=== PATIENT | female | born 1975 | race Caucasian/White ===

== ENCOUNTER 2017-08-28 05:48 | Day surgery (SDC) | payer BC ==
[2017-08-27 11:51] LABS: WHITE BLOOD COUNT 6.5 10^3/ul (4.8-10.8)
[2017-08-27 11:51] LABS: ADD MAN DIFF? NO; BASOPHILS % 0.5 % (0.0-2.0); EOSINOPHILS # 0.2 10^3/ul (0.0-0.5); EOSINOPHILS % 2.3 % (0.0-7.0); HEMATOCRIT 39.9 % (37.0-47.0); HEMOGLOBIN 13.4 g/dl (12.0-16.0); LYMPHOCYTES # 2.3 10^3/ul (0.8-2.9); MEAN CORPUSCULAR HEMOGLOBIN 30.7 pg (29.0-33.0); MEAN CORPUSCULAR HGB CONC 33.6 g/dl (32.0-37.0); MEAN CORPUSCULAR VOLUME 91.5 fl (82.0-101.0); MEAN PLATELET VOLUME 10.2 fl (7.4-10.4); MONOCYTE # 0.5 10^3/ul (0.3-0.9); MONOCYTES % 7.8 % (0.0-11.0); NEUTROPHIL # 3.5 10^3/ul (1.6-7.5); NEUTROPHILS % 54.2 % (39.0-77.0); PLATELET COUNT 217 10^3/UL (140-415); RED BLOOD COUNT 4.36 10^6/ul (4.20-5.40); RED CELL DISTRIBUTION WIDTH 11.6 % (11.5-14.5)
[2017-08-27 11:53] LABS: ADD UMIC NO; UR ASCORBIC ACID NEGATIVE (NEGATIVE); UR BILIRUBIN (Dip) NEGATIVE (NEGATIVE); UR BLOOD (Dip) NEGATIVE (NEGATIVE); UR CLARITY CLEAR (CLEAR); UR COLOR YELLOW (YELLOW); UR GLUCOSE (Dip) NEGATIVE (NEGATIVE); UR KETONES (Dip) NEGATIVE (NEGATIVE); UR LEUKOCYTE ESTERASE (Dip) NEGATIVE Leu/ul (NEGATIVE); UR NITRITE (Dip) NEGATIVE (NEGATIVE); UR SPECIFIC GRAVITY (Dip) 1.009 (1.003-1.030); UR TOTAL PROTEIN (Dip) NEGATIVE (NEGATIVE); UR UROBILINOGEN (Dip) NEGATIVE (NEGATIVE)
[2017-08-27 12:14] LABS: ALANINE AMINOTRANSFERASE 37 IU/L (13-69); ALBUMIN 4.3 g/dl (3.3-4.9); ALBUMIN/GLOBULIN RATIO 1.53; ALKALINE PHOSPHATASE 37 IU/L (42-121); ANION GAP 12 (8-16); ASPARTATE AMINO TRANSFERASE 17 IU/L (15-46); BILIRUBIN,INDIRECT 0.3 mg/dl (0-1.1); BILIRUBIN,TOTAL 0.3 mg/dl (0.2-1.3); BLOOD UREA NITROGEN 9 mg/dl (7-20); CALCIUM 9.4 mg/dl (8.4-10.2); CARBON DIOXIDE 30 mmol/L (21-31); CHLORIDE 104 mmol/L (97-110); CREATININE 0.62 mg/dl (0.44-1.00); GLUCOSE 74 mg/dl (70-220); POTASSIUM 3.9 mmol/L (3.5-5.1); SODIUM 142 mmol/L (135-144); TOTAL PROTEIN 7.1 g/dl (6.1-8.1)
[2017-08-27 12:22] LABS: INR 0.99; PROTIME 13.2 Sec (11.9-14.9)
[2017-08-27 12:23] LABS: PARTIAL THROMBOPLASTIN TIME 29.8 Sec (25.0-35.0)
[2017-08-28] MEDS ORDERED: hydrALAzine 20 MG INJ IV (06:30)
[2017-08-28] MEDS ORDERED: LABETALOL HCL 20MG INJ IV (06:30)
[2017-08-28] MEDS ORDERED: ATROPINE 1 MG/10 ML SYRINGE IV (06:30)
[2017-08-28] MEDS ORDERED: EPHEDrine SULFATE 50 MG/5 ML SYG IV (06:30)
[2017-08-28] MEDS ORDERED: DIPHENHYDRAMINE 50 MG INJ IV (06:30)
[2017-08-28] MEDS ORDERED: ONDANSETRON 4 MG INJ IV (06:30)
[2017-08-28] MEDS ORDERED: MIDAZOLAM 1 MG/ML 2 ML INJ IV (06:30)
[2017-08-28] MEDS ORDERED: ROCURONIUM 50 MG INJ (06:41)
[2017-08-28] MEDS ORDERED: LIDOCAINE 2% (SDV) 5 ML INJ (06:41)
[2017-08-28] MEDS ORDERED: GLYCOPYRROLATE 0.4 MG INJ (06:41)
[2017-08-28] MEDS ORDERED: MIDAZOLAM 1 MG/ML 2 ML INJ (06:41)
[2017-08-28] MEDS ORDERED: NEOSTIGMINE 3 MG/3 ML SYRINGE (06:41)
[2017-08-28] MEDS ORDERED: FENTAnyl 50 MCG/ML VIAL (06:41)
[2017-08-28] MEDS ORDERED: PROPOFOL 20 ML (06:41)
[2017-08-28] MEDS ORDERED: DEXAMETHASONE 4 MG/ML 1 ML INJ (06:46)
[2017-08-28] MEDS ORDERED: ONDANSETRON 4 MG INJ (06:53)
[2017-08-28] MEDS ORDERED: CEFAZOLIN 1 GM INJ (07:00)
[2017-08-28] MEDS: FENTAnyl 50 MCG/ML VIAL IV ×2 (09:00→09:41)
[2017-08-28] MEDS: STRONG IODINE 14 ML SOLUTION TOP (09:05)
[2017-08-28] MEDS: KETOROLAC 30 MG INJ IV (09:19)
[2017-08-28] MEDS: HYDROCODONE/APAP (5/325) TAB GTB (11:03)
== END 2017-08-28 11:39 | disposition home or self-care (01) ==
LOC: SDS 05:48
DX: D06.1 Carcinoma in situ of exocervix (principal)
CPT/HCPCS: 57520; 71046; 80053; 81003; 84703; 85025; 85610; 85730; 93005

== ENCOUNTER 2017-12-23 05:54 | Inpatient (IN) | payer BC ==
[2017-12-16 16:13] LABS: ADD MAN DIFF? NO
[2017-12-16 16:14] LABS: WHITE BLOOD COUNT 5.4 10^3/ul (4.8-10.8)
[2017-12-16 16:14] LABS: BASOPHILS % 0.6 % (0.0-2.0); EOSINOPHILS # 0.1 10^3/ul (0.0-0.5); EOSINOPHILS % 1.7 % (0.0-7.0); HEMATOCRIT 39.7 % (37.0-47.0); HEMOGLOBIN 13.4 g/dl (12.0-16.0); LYMPHOCYTES # 1.8 10^3/ul (0.8-2.9); LYMPHOCYTES % 34.1 % (15.0-51.0); MEAN CORPUSCULAR HEMOGLOBIN 30.9 pg (29.0-33.0); MEAN CORPUSCULAR HGB CONC 33.8 g/dl (32.0-37.0); MEAN CORPUSCULAR VOLUME 91.7 fl (82.0-101.0); MEAN PLATELET VOLUME 10.7 fl (7.4-10.4); MONOCYTE # 0.4 10^3/ul (0.3-0.9); MONOCYTES % 8.1 % (0.0-11.0); NEUTROPHILS % 55.3 % (39.0-77.0); PLATELET COUNT 201 10^3/UL (140-415); RED BLOOD COUNT 4.33 10^6/ul (4.20-5.40); RED CELL DISTRIBUTION WIDTH 11.4 % (11.5-14.5)
[2017-12-16 16:34] LABS: ADD UMIC NO; UR ASCORBIC ACID NEGATIVE (NEGATIVE); UR BILIRUBIN (Dip) NEGATIVE (NEGATIVE); UR BLOOD (Dip) NEGATIVE (NEGATIVE); UR CLARITY SLIGHTLY CLOUDY (CLEAR); UR COLOR YELLOW (YELLOW); UR GLUCOSE (Dip) NEGATIVE (NEGATIVE); UR KETONES (Dip) TRACE mg/dL (NEGATIVE); UR LEUKOCYTE ESTERASE (Dip) NEGATIVE Leu/ul (NEGATIVE); UR NITRITE (Dip) NEGATIVE (NEGATIVE); UR RBC 1 /HPF (0-5); UR SQUAMOUS EPITHELIAL CELL MODERATE /HPF (FEW); UR TOTAL PROTEIN (Dip) NEGATIVE (NEGATIVE); UR UROBILINOGEN (Dip) NEGATIVE (NEGATIVE); UR WBC 1 /HPF (0-5)
[2017-12-16 16:36] LABS: ALANINE AMINOTRANSFERASE 28 IU/L (13-69); ALBUMIN 4.6 g/dl (3.3-4.9); ALBUMIN/GLOBULIN RATIO 1.53; ALKALINE PHOSPHATASE 49 IU/L (42-121); ANION GAP 16 (8-16); ASPARTATE AMINO TRANSFERASE 17 IU/L (15-46); BILIRUBIN,INDIRECT 0.2 mg/dl (0-1.1); BILIRUBIN,TOTAL 0.2 mg/dl (0.2-1.3); BLOOD UREA NITROGEN 9 mg/dl (7-20); CALCIUM 9.5 mg/dl (8.4-10.2); CARBON DIOXIDE 25 mmol/L (21-31); CHLORIDE 107 mmol/L (97-110); CREATININE 0.63 mg/dl (0.44-1.00); GLUCOSE 84 mg/dl (70-220); SODIUM 144 mmol/L (135-144); TOTAL PROTEIN 7.6 g/dl (6.1-8.1)
[2017-12-16 16:37] LABS: PARTIAL THROMBOPLASTIN TIME 28.3 Sec (25.0-35.0)
[2017-12-16 17:12] LABS: INR 1.01; PROTIME 13.4 Sec (11.9-14.9)
[2017-12-23] MEDS ORDERED: MIDAZOLAM 1 MG/ML 2 ML INJ (07:34)
[2017-12-23] MEDS ORDERED: ROCURONIUM 50 MG INJ (07:34)
[2017-12-23] MEDS ORDERED: PROPOFOL 20 ML (07:34)
[2017-12-23] MEDS ORDERED: ONDANSETRON 4 MG INJ (07:34)
[2017-12-23] MEDS ORDERED: FENTAnyl 50 MCG/ML VIAL ×2 (07:34→10:34)
[2017-12-23] MEDS ORDERED: NEOSTIGMINE 3 MG/3 ML SYRINGE (07:34)
[2017-12-23] MEDS ORDERED: CEFAZOLIN 1 GM INJ (07:34)
[2017-12-23] MEDS ORDERED: GLYCOPYRROLATE 0.4 MG INJ (07:34)
[2017-12-23] MEDS ORDERED: DEXAMETHASONE 4 MG/ML 1 ML INJ (07:35)
[2017-12-23] MEDS ORDERED: morphine SULFATE/PF (10 MG/10 ML) INJ (07:35)
[2017-12-23] MEDS ORDERED: BUPIVACAINE 0.75%/DEXT (SPINAL) 2 ML INJ (07:36)
[2017-12-23] MEDS: CEFAZOLIN 2 GM/50 ML (PMX) 50 ML IVPB ×3 (08:08→22:15)
[2017-12-23] MEDS ORDERED: NALOXONE (0.4 MG/ML) INJ IV ×2 (09:00)
[2017-12-23] MEDS ORDERED: FENTAnyl 50 MCG/ML VIAL IV (09:00)
[2017-12-23] MEDS ORDERED: IPRATROPIUM (NEB) 0.5 MG/2.5 ML AMP HHN (09:00)
[2017-12-23] MEDS ORDERED: TRIMETHOBENZAMIDE 100 MG/ML VIAL IM (09:00)
[2017-12-23] MEDS ORDERED: EPHEDrine SULFATE 50 MG/5 ML SYG IV (09:00)
[2017-12-23] MEDS ORDERED: LABETALOL HCL 20MG INJ IV (09:00)
[2017-12-23] MEDS ORDERED: ALBUTEROL 0.083% (NEB) 2.5 MG/3 ML AMP HHN (09:00)
[2017-12-23] MEDS ORDERED: hydrALAzine 20 MG INJ IV (09:00)
[2017-12-23] MEDS ORDERED: KETOROLAC 30 MG INJ (10:33)
[2017-12-23] MEDS: DIPHENHYDRAMINE 50 MG INJ IV (10:57)
[2017-12-23] MEDS: ONDANSETRON 4 MG INJ IV ×2 (10:57→14:05)
[2017-12-23] MEDS: FENTAnyl 50 MCG/ML VIAL IV ×3 (10:57→11:09)
[2017-12-23] MEDS: LACTATED RINGER'S 1,000 ML (ENTER RATE) IV* ×3 (10:59→22:52)
[2017-12-23] MEDS: MIDAZOLAM 1 MG/ML 2 ML INJ IV (11:20)
[2017-12-23] MEDS: MEPERIDINE 25 MG INJ IV (11:26)
[2017-12-23] MEDS: morphine 2 MG INJ IV ×4 (11:40→22:16)
[2017-12-23] MEDS ORDERED: ALPRAZOLAM 0.25 MG TAB PO (12:00)
[2017-12-23 12:35] LABS: ADD UMIC YES; UR ASCORBIC ACID NEGATIVE (NEGATIVE); UR BILIRUBIN (Dip) NEGATIVE (NEGATIVE); UR BLOOD (Dip) 1+ mg/dL (NEGATIVE); UR CLARITY CLEAR (CLEAR); UR COLOR YELLOW (YELLOW); UR GLUCOSE (Dip) NEGATIVE (NEGATIVE); UR KETONES (Dip) NEGATIVE (NEGATIVE); UR LEUKOCYTE ESTERASE (Dip) NEGATIVE Leu/ul (NEGATIVE); UR NITRITE (Dip) NEGATIVE (NEGATIVE); UR RBC 13 /HPF (0-5); UR SPECIFIC GRAVITY (Dip) 1.017 (1.003-1.030); UR TOTAL PROTEIN (Dip) NEGATIVE (NEGATIVE); UR UROBILINOGEN (Dip) NEGATIVE (NEGATIVE); UR WBC 1 /HPF (0-5)
[2017-12-23] MEDS ORDERED: VITAMIN A & D 5 GM OINT PACKET TOP (13:58)
[2017-12-23] MEDS: IBUPROFEN 600 MG TAB PO ×2 (14:18→22:15)
[2017-12-23] MEDS: HYDROCODONE/APAP (5/325) TAB PO ×2 (16:33→20:35)
[2017-12-23] MEDS: PANTOPRAZOLE (EC) 40 MG TAB PO (16:34)
[2017-12-24] MEDS: HYDROCODONE/APAP (5/325) TAB PO ×6 (00:36→22:02)
[2017-12-24] MEDS: morphine 2 MG INJ IV (05:13)
[2017-12-24] MEDS: CEFAZOLIN 2 GM/50 ML (PMX) 50 ML IVPB (05:14)
[2017-12-24] MEDS: PANTOPRAZOLE (EC) 40 MG TAB PO (05:14)
[2017-12-24] MEDS: IBUPROFEN 600 MG TAB PO ×3 (05:14→22:04)
[2017-12-24 05:25] LABS: ADD MAN DIFF? NO
[2017-12-24 05:31] LABS: BASOPHILS % 0.3 % (0.0-2.0); EOSINOPHILS % 0.3 % (0.0-7.0); HEMATOCRIT 30.8 % (37.0-47.0); HEMOGLOBIN 10.2 g/dl (12.0-16.0); LYMPHOCYTES # 1.5 10^3/ul (0.8-2.9); MEAN CORPUSCULAR HEMOGLOBIN 30.8 pg (29.0-33.0); MEAN CORPUSCULAR HGB CONC 33.1 g/dl (32.0-37.0); MEAN CORPUSCULAR VOLUME 93.1 fl (82.0-101.0); MEAN PLATELET VOLUME 11.3 fl (7.4-10.4); MONOCYTE # 0.9 10^3/ul (0.3-0.9); MONOCYTES % 8.2 % (0.0-11.0); NEUTROPHIL # 8.7 10^3/ul (1.6-7.5); NEUTROPHILS % 77.8 % (39.0-77.0); PLATELET COUNT 173 10^3/UL (140-415); RED BLOOD COUNT 3.31 10^6/ul (4.20-5.40); RED CELL DISTRIBUTION WIDTH 11.5 % (11.5-14.5)
[2017-12-24 05:31] LABS: WHITE BLOOD COUNT 11.2 10^3/ul (4.8-10.8)
[2017-12-24] MEDS ORDERED: PANTOPRAZOLE (EC) 40 MG TAB PO (06:00)
[2017-12-24 06:14] LABS: ANION GAP 8 (8-16); BLOOD UREA NITROGEN 5 mg/dl (7-20); CALCIUM 8.2 mg/dl (8.4-10.2); CARBON DIOXIDE 29 mmol/L (21-31); CHLORIDE 109 mmol/L (97-110); CREATININE 0.52 mg/dl (0.44-1.00); GLUCOSE 116 mg/dl (70-220); POTASSIUM 3.8 mmol/L (3.5-5.1); SODIUM 142 mmol/L (135-144)
[2017-12-24] MEDS: LACTATED RINGER'S 1,000 ML (ENTER RATE) IV* ×3 (06:23→23:00)
[2017-12-24] MEDS ORDERED: HYDROCODONE/APAP (5/325) TAB PO (08:00)
[2017-12-24 08:34] LABS: ADD UMIC NO; UR ASCORBIC ACID NEGATIVE (NEGATIVE); UR BILIRUBIN (Dip) NEGATIVE (NEGATIVE); UR BLOOD (Dip) NEGATIVE (NEGATIVE); UR CLARITY CLEAR (CLEAR); UR COLOR STRAW (YELLOW); UR GLUCOSE (Dip) NEGATIVE (NEGATIVE); UR KETONES (Dip) NEGATIVE (NEGATIVE); UR LEUKOCYTE ESTERASE (Dip) NEGATIVE Leu/ul (NEGATIVE); UR NITRITE (Dip) NEGATIVE (NEGATIVE); UR SPECIFIC GRAVITY (Dip) 1.008 (1.003-1.030); UR TOTAL PROTEIN (Dip) NEGATIVE (NEGATIVE); UR UROBILINOGEN (Dip) NEGATIVE (NEGATIVE)
[2017-12-24] MEDS ORDERED: clonAZEPAM 0.5 MG TAB PO (11:30)
[2017-12-24] MEDS: CARISOPRODOL 350 MG TAB PO (12:07)
[2017-12-24] MEDS: NA PHOSPHATE/BIPHOS 133 ML ENEMA PR (15:10)
[2017-12-24] MEDS: AL HYDROX/MG HYDROX/SIMETH 30 ML CUP PO (20:11)
[2017-12-24] MEDS: SENNA/DOCUSATE NA (8.6MG/50MG) TAB PO (20:11)
[2017-12-25] MEDS: PANTOPRAZOLE (EC) 40 MG TAB PO (05:08)
[2017-12-25] MEDS: AL HYDROX/MG HYDROX/SIMETH 30 ML CUP PO ×2 (05:08→13:10)
[2017-12-25] MEDS: IBUPROFEN 600 MG TAB PO ×3 (05:08→21:34)
[2017-12-25 05:46] LABS: ADD MAN DIFF? NO
[2017-12-25 05:56] LABS: WHITE BLOOD COUNT 7.3 10^3/ul (4.8-10.8)
[2017-12-25 05:56] LABS: BASOPHILS % 0.4 % (0.0-2.0); EOSINOPHILS # 0.2 10^3/ul (0.0-0.5); EOSINOPHILS % 2.2 % (0.0-7.0); HEMATOCRIT 28.7 % (37.0-47.0); HEMOGLOBIN 9.6 g/dl (12.0-16.0); LYMPHOCYTES # 1.9 10^3/ul (0.8-2.9); MEAN CORPUSCULAR HGB CONC 33.4 g/dl (32.0-37.0); MEAN CORPUSCULAR VOLUME 92.6 fl (82.0-101.0); MEAN PLATELET VOLUME 11.5 fl (7.4-10.4); MONOCYTE # 0.6 10^3/ul (0.3-0.9); MONOCYTES % 8.5 % (0.0-11.0); NEUTROPHIL # 4.6 10^3/ul (1.6-7.5); NEUTROPHILS % 62.6 % (39.0-77.0); PLATELET COUNT 149 10^3/UL (140-415); RED CELL DISTRIBUTION WIDTH 11.9 % (11.5-14.5)
[2017-12-25 06:16] LABS: ANION GAP 9 (8-16); BLOOD UREA NITROGEN 3 mg/dl (7-20); CALCIUM 8.2 mg/dl (8.4-10.2); CARBON DIOXIDE 32 mmol/L (21-31); CHLORIDE 109 mmol/L (97-110); CREATININE 0.51 mg/dl (0.44-1.00); GLUCOSE 81 mg/dl (70-220); POTASSIUM 3.9 mmol/L (3.5-5.1); SODIUM 146 mmol/L (135-144)
[2017-12-25] MEDS: LACTATED RINGER'S 1,000 ML (ENTER RATE) IV* (07:00)
[2017-12-25] MEDS: SENNA/DOCUSATE NA (8.6MG/50MG) TAB PO ×2 (09:05→20:42)
[2017-12-25] MEDS: HYDROCODONE/APAP (5/325) TAB PO ×3 (09:06→20:43)
[2017-12-25] MEDS: CARISOPRODOL 350 MG TAB PO (14:39)
[2017-12-25] MEDS: ACETAMINOPHEN 325 MG TAB PO (18:07)
[2017-12-26] MEDS: CARISOPRODOL 350 MG TAB PO (00:26)
[2017-12-26] MEDS: PANTOPRAZOLE (EC) 40 MG TAB PO (07:39)
[2017-12-26] MEDS: HYDROCODONE/APAP (5/325) TAB PO ×2 (07:39→11:58)
[2017-12-26] MEDS: IBUPROFEN 600 MG TAB PO (07:42)
[2017-12-26] MEDS: SENNA/DOCUSATE NA (8.6MG/50MG) TAB PO (08:46)
[2017-12-26] MEDS: AL HYDROX/MG HYDROX/SIMETH 30 ML CUP PO (12:01)
== END 2017-12-26 14:06 | disposition home or self-care (01) | DRG 740 ==
LOC: REC 05:54 → MS1 12:39
PROVIDERS: Obstetrics & Gynecology
PROC: 0UT90ZZ Resection of Uterus, Open Approach (ICD-10-PCS; principal; 2017-12-23 07:30)
PROC: 0UT20ZZ Resection of Bilateral Ovaries, Open Approach (ICD-10-PCS; 2017-12-23 07:30)
PROC: 0UT70ZZ Resection of Bilateral Fallopian Tubes, Open Approach (ICD-10-PCS; 2017-12-23 07:30)
DX: D06.9 Carcinoma in situ of cervix, unspecified (principal); D62 Acute posthemorrhagic anemia; M47.9 Spondylosis, unspecified
CPT/HCPCS: 71045; 80048; 80053; 81001; 81003; 85025; 85610; 85730; 86850; 86900; 86901; 86920; 87086; 93005